=== PATIENT | female | born 1965 | race Caucasian/White ===

== ENCOUNTER 2018-12-03 06:21 | Day surgery (SDC) | payer OTHER ==
[~2018-12-03] VITALS: Ht 167.6 cm; Wt 88.5 kg
[2018-12-03] MEDS ORDERED: SEVOFLURANE 15 MIN GAS INH ONE (08:25)
[2018-12-03] MEDS ORDERED: MIDAZOLAM HCL 5 MG/5 ML VIAL IVP ONE (08:25)
[2018-12-03] MEDS ORDERED: LR 1,000 ML IV.SOLN IV ONE (08:25)
[2018-12-03] MEDS ORDERED: ONDANSETRON HCL 4 MG/2 ML VIAL IVP ONE (08:25)
[2018-12-03] MEDS ORDERED: METOCLOPRAMIDE HCL 10 MG/2 ML VIAL IVP ONE (08:25)
[2018-12-03] MEDS ORDERED: OXYMETAZOLINE HCL 0.05% NASAL SPRAY NS ONE (08:25)
[2018-12-03] MEDS ORDERED: DEXAMETHASONE SOD PHOSPHATE 4 MG/ML VIAL IVP ONE (08:25)
[2018-12-03] MEDS ORDERED: EPINEPHrine 1 MG/ML AMP IV ONE (08:25)
[2018-12-03] MEDS ORDERED: ROCURONIUM BROMIDE 10 MG/ML (ZEMURON) IV ONE (08:25)
[2018-12-03] MEDS ORDERED: LIDOCAINE/EPI 1% 1:100000 20 ML VIAL INJ ONE (08:25)
[2018-12-03] MEDS ORDERED: fentaNYL CITRATE/PF 100 MCG/2 ML AMP IVP ONE (08:25)
[2018-12-03] MEDS ORDERED: MUPIROCIN 2% TOPICAL OINTMENT 22 GM TP ONE (08:25)
[2018-12-03] MEDS ORDERED: fentaNYL CITRATE/PF 100 MCG/2 ML AMP IVP PRN ×2 (09:15)
[2018-12-03] MEDS ORDERED: ONDANSETRON HCL 4 MG/2 ML VIAL IVP PRN (09:15)
[2018-12-03] MEDS ORDERED: METOCLOPRAMIDE HCL 10 MG/2 ML VIAL ONE (10:44)
[2018-12-03] MEDS ORDERED: PROMETHAZINE INJ.Non-Formulary 25 MG/ML AMP IM PRN (11:00)
[2018-12-03] MEDS ORDERED: PROMETHAZINE INJ.Non-Formulary 25 MG/ML AMP ONE (11:02)
[2018-12-03 12:19] VITALS: BP_SYST 136
== END 2018-12-03 14:30 | disposition home or self-care (01) ==
LOC: SDS 06:21 → SMU 06:21 → SDS 14:30
PROVIDERS: ATTEND Otolaryngology
DX: J34.2 Deviated nasal septum (principal); J32.9 Chronic sinusitis, unspecified; J34.89 Other specified disorders of nose and nasal sinuses; K21.9 Gastro-esophageal reflux disease without esophagitis; E66.3 Overweight; J30.1 Allergic rhinitis due to pollen; Z88.2 Allergy status to sulfonamides; Z88.8 Allergy status to other drugs, medicaments and biological substances
CPT/HCPCS: 30140; 30520; 31255; 31267; 88305; 88311; J0171; J1100; J2250; J2405; J2550; J2765; J3010; J7120